=== PATIENT | male | born 1950 | race Caucasian/White ===

== ENCOUNTER 2023-12-18 19:15 | Emergency (ER) | payer MEDICARE, MEDICAID ==
[~2023-12-18] VITALS: Ht 172.7 cm; Wt 93.2 kg
[2023-12-18 19:53] VITALS: TEMP 98.1
[2023-12-18 20:03] VITALS: BP 151/120; PULSE 71; RESP 16; O2SAT 97
[2023-12-18] MEDS: BACITRACIN 0.9 GM PACKET OINTMENT TP ONE (20:29)
== END 2023-12-18 21:12 | disposition home or self-care (01) ==
LOC: EMS 19:15
DX: S09.90XA Unspecified injury of head, initial encounter (principal); G20.A1 Parkinson's disease without dyskinesia, without mention of fluctuations; W01.0XXA Fall on same level from slipping, tripping and stumbling without subsequent striking against object, initial encounter; Y93.01 Activity, walking, marching and hiking; Y92.89 Other specified places as the place of occurrence of the external cause; Y99.8 Other external cause status
CPT/HCPCS: 70450; 72125; 99284